=== PATIENT | female | born 1935 | race Caucasian/White ===

== ENCOUNTER 2018-10-10 21:50 | Emergency (ER) | payer MEDICARE, MEDICAID ==
[~2018-10-10] VITALS: Ht 167.6 cm; Wt 81.6 kg
[2018-10-10] MEDS ORDERED: METFORMIN HCL500 M4 ORAL (21:55)
--- NOTE | 2018-10-10 22:05 | Emergency Room Report ---
History of Present Illness General Chief Complaint: Abdominal Pain Source: Patient Present Illness HPI Patient presents with right lower quadrant pain that began yesterday. It's constant. She denies any fevers, nausea, vomiting, diarrhea. She's worried that this might be appendicitis. She denies any dysuria or hematuria. The stools have been normal. Pain rated 8/10, aching and constant. Denies chest pain. Patient is a [id number]-otqlnaukb diabetic. H/O HTN. No rashes, headache, dyspnea, joint pain, weakness. H/O depression, but not c/o this now. Allergies: Coded Allergies: No Known Allergies (Unverified , 10/10/18) Patient History Past Medical History: see triage record Social History: Denies: smoking Social History Narrative At Assisted Living Last Menstrual Period: UNK Reviewed Nursing Documentation: PMH: Agreed; PSxH: Agreed Nursing Documentation-PMH Past Medical History: No History, Except For Hx Cardiac Problems: No - glaucoma Hx Hypertension: Yes Hx Diabetes: Yes Hx Neurological Problems: Yes - depression Review of Systems All Other Systems: negative except mentioned in HPI Physical Exam Vital Signs Date Time Temp Pulse Resp B/P (MAP) Pulse Ox O2 Delivery O2 Flow Rate FiO2 10/10/18 21:51 98.2 79 16 183/82 97 Room Air Sp02 EP Interpretation: reviewed, normal General Appearance: well appearing, no apparent distress, GCS 15 Head: normocephalic Eyes: bilateral eye normal inspection, bilateral eye PERRL ENT: moist mucus membranes Neck: supple Respiratory: lungs clear, normal breath sounds Cardiovascular #1: regular rate, rhythm Cardiovascular #2: 2+ radial (R), 2+ femoral (R), 2+ femoral (L) Gastrointestinal: normal inspection, normal bowel sounds, no mass, non- distended, no guarding, no rebound, tenderness - mid abdomen Genitourinary: no CVA tenderness Musculoskeletal: back normal, gait/station normal, normal range of motion Neurologic: alert, motor strength/tone normal, sensory intact, oriented - X2 Psychiatric: mood/affect normal Skin: normal inspection, warm/dry Medical Decision Making Diagnostic Impression: Primary Impression: Abdominal pain Qualified Codes: R10.31 - Right lower quadrant pain Additional Impression: Aortic aneurysm Qualified Codes: I71.2 - Thoracic aortic aneurysm, without rupture ER Course Patient presents with right lower quadrant pain. Differential includes diverticulitis, appendicitis, urinary tract infection amongst others. She'll be evaluated with EKG, CT abdomen and pelvis with contrast, labs with urinalysis. The patient will be treated with IV hydration small dose of morphine and Zofran. EKG no injury. CT Abd/Pelvis - appendix normal. Thoracic aneurism 7.6 cm with mural thrombus. WBC 10.2 no left shift. CMP - elevated glucose and calcium. UA clear. [facility] did not get initial fax in attempt to transfer. Contact [facility] and discussed with Transfer Center. Recall 5:07. Recall 5:45 - Dr. Hartmann has not contacted Transfer Center. Call [facility]. Discussed with Dr. Mccall who is looking for bed for possible transfer. Pt BP better and resting and no complaints of pain. Re-call - discussed with [facility] 7:15 - had not heard from Dr. Mccall (re- discussed with Dr. Mccall). Discussed with Transfer Center, [facility], who state they had to hear from Dr. Mccall. (He contacted them during the call.) Will accept patient. Patient still with RLQ tenderness returned (but improved). Abd soft. Repeat morphine. Patient stable for transfer higher level of care. Laboratory Tests Test 10/10/18 22:25 10/10/18 23:05 White Blood Count 10.2 K/UL (4.8-10.8) Red Blood Count 4.87 M/UL (4.20-5.40) Hemoglobin 14.2 G/DL (12.0-16.0) Hematocrit 42.6 % (37.0-47.0) Mean Corpuscular Volume 87 FL (80-99) Mean Corpuscular Hemoglobin 29.3 PG (27.0-31.0) Mean Corpuscular Hemoglobin Concent 33.4 G/DL (32.0-36.0) Red Cell Distribution Width 12.9 % (11.6-14.8) Platelet Count 231 K/UL (150-450) Mean Platelet Volume 7.5 FL (6.5-10.1) Neutrophils (%) (Auto) 63.1 % (45.0-75.0) Lymphocytes (%) (Auto) 26.4 % (20.0-45.0) Monocytes (%) (Auto) 7.0 % (1.0-10.0) Eosinophils (%) (Auto) 2.5 % (0.0-3.0) Basophils (%) (Auto) 1.0 % (0.0-2.0) Prothrombin Time 10.7 SEC (9.30-11.50) Prothrombin Time INR 1.0 (0.9-1.1) PTT 30 SEC (23-33) Sodium Level 137 MMOL/L (136-145) Potassium Level 3.8 MMOL/L (3.5-5.1) Chloride Level 102 MMOL/L (98-107) Carbon Dioxide Level 26 MMOL/L (21-32) Anion Gap 9 mmol/L (5-15) Blood Urea Nitrogen 13 mg/dL (7-18) Creatinine 0.8 MG/DL (0.55-1.30) Estimate Glomerular Filtration Rate mL/min (>60) Glucose Level 212 MG/DL (74-106) H Calcium Level 10.5 MG/DL (8.5-10.1) H Total Bilirubin 0.2 MG/DL (0.2-1.0) Aspartate Amino Transferase (AST) 12 U/L (15-37) L Alanine Aminotransferase (ALT) 15 U/L (12-78) Alkaline Phosphatase 109 U/L (46-116) Total Protein 7.9 G/DL (6.4-8.2) Albumin 3.5 G/DL (3.4-5.0) Globulin 4.4 g/dL Albumin/Globulin Ratio 0.8 (1.0-2.7) L Lipase 141 U/L (73-393) Urine Color Pale yellow Urine Appearance Clear Urine pH 7 (4.5-8.0) Urine Specific [place] 1.015 (1.005-1.035) Urine Protein Negative (NEGATIVE) Urine Glucose (UA) Negative (NEGATIVE) Urine Ketones Negative (NEGATIVE) Urine Blood Negative (NEGATIVE) Urine Nitrite Negative (NEGATIVE) Urine Bilirubin Negative (NEGATIVE) Urine Urobilinogen 1 MG/DL (0.0-1.0) H Urine Leukocyte Esterase Negative (NEGATIVE) EKG Diagnostic Results Rate: normal Rhythm: NSR ST Segments: no acute changes Rhythm Strip Diag. Results EP Interpretation: yes Rhythm: NSR, no PVC's, no ectopy Chest X-Ray Diagnostic Results Chest X-Ray Diagnostic Results : Chest X-Ray Ordered: Yes # of Views/Limited/Complete: 1 View Indication: Other EP Interpretation: Yes Interpretation: no consolidation, no effusion, no pneumothorax, other - ectatic aorta Impression: Other Electronically Signed by: Jay Pat MD CT/MRI/US Diagnostic Results CT/MRI/US Diagnostic Results : Imaging Test Ordered: abd/pelvis Impression 7.6 cm aortic aneurism with mural thrombus Last Vital Signs Date Time Temp Pulse Resp B/P (MAP) Pulse Ox O2 Delivery O2 Flow Rate FiO2 10/11/18 10:06 97.8 66 18 158/79 94 Room Air Status: improved Disposition: XFER SHT-TRM HOSP Condition: Serious Jay Pat MD Oct 10, 2018 22:05
[2018-10-10] MEDS ORDERED: Morphine Sulfate 2mg/ml Inj IVP ONE (22:15)
[2018-10-10] MEDS ORDERED: Isovue-300 100ml vial INJ PRN (22:15)
[2018-10-10 22:37] VITALS: BP 117/69
[2018-10-10 22:40] LABS: EOSINOPHILS % (AUTO) 2.5 % (0.0-3.0); HEMATOCRIT 42.6 % (37.0-47.0); HEMOGLOBIN 14.2 G/DL (12.0-16.0); LYMPHOCYTES % (AUTO) 26.4 % (20.0-45.0); MEAN CORPUSCULAR VOLUME 87 FL (80-99); NEUTROPHILS % (AUTO) 63.1 % (45.0-75.0); PLATELET COUNT 231 K/UL (150-450); RED BLOOD COUNT 4.87 M/UL (4.20-5.40); RED CELL DISTRIBUTION WIDTH 12.9 % (11.6-14.8); WHITE BLOOD COUNT 10.2 K/UL (4.8-10.8)
[2018-10-10 22:49] LABS: ANION GAP 9 mmol/L (5-15); BLOOD UREA NITROGEN 13 mg/dL (7-18); CALCIUM 10.5 MG/DL (8.5-10.1); CARBON DIOXIDE 26 MMOL/L (21-32); CHLORIDE 102 MMOL/L (98-107); CREATININE 0.8 MG/DL (0.55-1.30); POTASSIUM 3.8 MMOL/L (3.5-5.1); SODIUM 137 MMOL/L (136-145)
[2018-10-10 22:54] LABS: ALANINE AMINOTRANSFERASE 15 U/L (12-78); ALBUMIN 3.5 G/DL (3.4-5.0); ALBUMIN/GLOBULIN RATIO 0.8 (1.0-2.7); ALKALINE PHOSPHATASE 109 U/L (46-116); ASPARTATE AMINO TRANSFERASE 12 U/L (15-37); BILIRUBIN,TOTAL 0.2 MG/DL (0.2-1.0)
[2018-10-10 23:39] LABS: APPEARANCE,URINE CLEAR; BILIRUBIN, URINE NEGATIVE (NEGATIVE); COLOR,URINE PALE YELLOW; GLUCOSE, URINE (UA) NEGATIVE (NEGATIVE); KETONES,URINE NEGATIVE (NEGATIVE); LEUKOCYTE ESTERASE ,URINE NEGATIVE (NEGATIVE); NITRITE,URINE NEGATIVE (NEGATIVE); PH,URINE 7 (4.5-8.0); PROTEIN,URINE NEGATIVE (NEGATIVE); UROBILINOGEN,URINE 1 MG/DL (0.0-1.0)
--- NOTE | 2018-10-11 01:34 | Diagnostic Imaging Report ---
EXAM: CT Abdomen and Pelvis With Intravenous Contrast CLINICAL HISTORY: ABD PAIN TECHNIQUE: Axial computed tomography images of the abdomen and pelvis with intravenous contrast. CTDI is 0.15, 19.75 mGy and DLP is 1054 mGy-cm. One or more of the following dose reduction techniques were used: automated exposure control, adjustment of the mA and/or kV according to patient size, use of iterative reconstruction technique. COMPARISON: No relevant prior studies available. FINDINGS: Lung bases: Left lower lobe atelectasis. ABDOMEN: Liver: Unremarkable. Gallbladder and bile ducts: Cholelithiasis. No biliary dilatation. Pancreas: Unremarkable. Spleen: Unremarkable. Adrenals: Unremarkable. Kidneys and ureters: Unremarkable. No solid mass. No hydronephrosis. Stomach and bowel: Unremarkable. Bowel is nondilated. PELVIS: Appendix: No findings to suggest acute appendicitis. Bladder: Unremarkable. Reproductive: Fibroid uterus. ABDOMEN and PELVIS: Intraperitoneal space: Unremarkable. No free air. Bones/joints: No acute osseous abnormality. Degenerative changes of the spine. Soft tissues: Unremarkable. Vasculature: Incompletely imaged descending thoracic aortic aneurysm measuring up to 7.6 cm with mural thrombus. Extensive atherosclerosis of the abdominal aorta. Ectasia of the proximal abdominal aorta. No abdominal aortic dissection. Lymph nodes: Unremarkable. IMPRESSION: Incompletely imaged descending thoracic aortic aneurysm measuring up to 7.6 cm with mural thrombus. CTA of the chest may be considered for further characterization.
[2018-10-11 03:00] VITALS: BP 142/78
[2018-10-11 06:58] VITALS: BP 150/69
[2018-10-11] MEDS ORDERED: Morphine Sulfate 2mg/ml Inj IVP ONE ×2 (08:30→09:15)
--- NOTE | 2018-10-11 09:01 | Diagnostic Imaging Report ---
PORTABLE AP UPRIGHT CXR: HISTORY: 83-year-old female with aortic aneurysm. COMPARISON: Abdomen and pelvis CT with intravenous contrast earlier same date. FINDINGS: There is a large, smooth, curvilinear "mass" within the left chest, extending from the level of the aortic arch through medial left hemidiaphragm, centered at the level of the pulmonary hilum, consistent with descending thoracic aortic aneurysm, which was partially imaged on the prior abdominal CT. There is no obvious significant aneurysmal dilation of the ascending thoracic aorta, allowing for technique. No obvious pleural effusion. The lungs are grossly clear. Heart size is normal. IMPRESSION: Aneurysm of at least the descending thoracic aorta, as identified on the abdominal CT same date. Chest CTA is suggested for complete evaluation.
[2018-10-11 09:03] VITALS: BP 127/82
[2018-10-11 10:06] VITALS: BP 158/79
--- NOTE | 2018-10-11 12:22 | Cardiology Report ---
APPROVED REPORT EKG Measurement Heart [id number] Normal sinus rhythm Normal ECG
== END 2018-10-11 10:19 | disposition short-term general hospital (02) ==
LOC: EDBD 21:50 → EMR 22:12
DX: R10.31 Right lower quadrant pain (principal); I71.2 Thoracic aortic aneurysm, without rupture; E11.9 Type 2 diabetes mellitus without complications; I10 Essential (primary) hypertension
CPT/HCPCS: 36415; 71045; 74177; 80053; 81003; 83690; 85025; 85610; 85730; 86850; 86900; 86901; 93005; 96361; 96374; 96375; 99285; J2270; J2405; Q9967

== ENCOUNTER 2018-11-19 10:22 | Emergency (ER) | payer MEDICARE, MEDICAID ==
[~2018-11-19] VITALS: Ht 172.7 cm; Wt 81.6 kg
[~2018-11-19 10:22] MED LIST: METFORMIN HCL500 M4 ORAL
[2018-11-19] MEDS ORDERED: Isovue-300 100ml vial INJ PRN (10:45)
--- NOTE | 2018-11-19 10:56 | NUR ---
ED Nurse Note:pt. was BIBA from assist living with c/o right upper abd pain, VSS, pt. is A/Ox3 ambulatory with assistance, blood and urine sent to labs, IV fluid given
[2018-11-19 11:05] VITALS: BP 147/82
[2018-11-19 11:07] LABS: BASOPHILS % (AUTO) 0.9 % (0.0-2.0); EOSINOPHILS % (AUTO) 1.6 % (0.0-3.0); HEMATOCRIT 44.7 % (37.0-47.0); HEMOGLOBIN 14.7 G/DL (12.0-16.0); LYMPHOCYTES % (AUTO) 20.9 % (20.0-45.0); MEAN CORPUSCULAR VOLUME 86 FL (80-99); MONOCYTES % (AUTO) 6.2 % (1.0-10.0); NEUTROPHILS % (AUTO) 70.5 % (45.0-75.0); PLATELET COUNT 246 K/UL (150-450); RED BLOOD COUNT 5.19 M/UL (4.20-5.40); RED CELL DISTRIBUTION WIDTH 12.9 % (11.6-14.8)
[2018-11-19 11:10] LABS: ANION GAP 7 mmol/L (5-15); BLOOD UREA NITROGEN 12 mg/dL (7-18); CALCIUM 10.6 MG/DL (8.5-10.1); CARBON DIOXIDE 27 MMOL/L (21-32); CHLORIDE 104 MMOL/L (98-107); CREATININE 0.8 MG/DL (0.55-1.30); POTASSIUM 4.3 MMOL/L (3.5-5.1); SODIUM 138 MMOL/L (136-145)
[2018-11-19 11:16] LABS: ALANINE AMINOTRANSFERASE 15 U/L (12-78); ALBUMIN 3.3 G/DL (3.4-5.0); ALBUMIN/GLOBULIN RATIO 0.9 (1.0-2.7); ALKALINE PHOSPHATASE 91 U/L (46-116); ASPARTATE AMINO TRANSFERASE 19 U/L (15-37); BILIRUBIN,TOTAL 0.5 MG/DL (0.2-1.0)
[2018-11-19 11:39] LABS: APPEARANCE,URINE CLEAR; BILIRUBIN, URINE NEGATIVE (NEGATIVE); COLOR,URINE PALE YELLOW; GLUCOSE, URINE (UA) NEGATIVE (NEGATIVE); KETONES,URINE NEGATIVE (NEGATIVE); LEUKOCYTE ESTERASE ,URINE NEGATIVE (NEGATIVE); NITRITE,URINE NEGATIVE (NEGATIVE); PH,URINE 7 (4.5-8.0); PROTEIN,URINE NEGATIVE (NEGATIVE); UROBILINOGEN,URINE NORMAL MG/DL (0.0-1.0)
[2018-11-19 12:29] VITALS: BP 124/79
--- NOTE | 2018-11-19 12:43 | Diagnostic Imaging Report ---
INDICATION: Pain TECHNIQUE: Multiple, contiguous axial cuts of the abdomen and pelvis are obtained from the lung bases to the ischial tuberosities. Sagittal and coronal reformatted images are available. One or more of the following dose reduction techniques were used: automated exposure control, adjustment of the mA and/or kV according to patient size, use of iterative reconstruction technique. COMPARISON: CT abdomen and pelvis 10/11/18 FINDINGS: The lung bases are clear. Large descending thoracic aortic aneurysm measuring 8 x 7.6 cm, grossly unchanged in size from prior exam. The abdominal aorta at the level of the diaphragmatic hiatus measures 4.1 cm. The liver and spleen are normal in size and free of mass lesions. Gallstones. The bile ducts and pancreas are normal. The adrenal gland are unremarkable. The kidneys are normal in size and contour. No stones, lesions or hydronephrosis. Fluid seen in endometrial canal. Small hiatal hernia. No bowel obstruction. The bowel is otherwise normal. Atherosclerotic vascular disease. Aorta is normal caliber. No adenopathy or extraluminal air. Mild disc height loss throughout. Moderate-sized anterior osteophytes. The osseous structures are otherwise normal. IMPRESSION: 1. Continued demonstration of large descending thoracic aortic aneurysm measuring 8 x 7.6 cm. The abdominal aorta the level of the diaphragmatic hiatus measures 4.1 cm. 2. Gallstones without gallbladder wall thickening or pericholecystic fluid. 3. Small hiatal hernia. 4. Fluid seen in the endometrium canal, it a postmenopausal females further evaluation can be obtained with pelvic ultrasound. CTDI: 17.94 mGy DLP: 881.51 mGycm
--- NOTE | 2018-11-19 13:24 | Emergency Room Report ---
History of Present Illness General Chief Complaint: Abdominal Pain Source: Patient, Medical Record, EMS Present Illness HPI Patient presents with complaints of right-sided mid abdominal pain Increased nausea denies any vomiting Denies any diarrhea Pain is sharp intermittent Denies any fevers or chills Patient was here [place] at that time has shown an aneurysm and patient was transferred to [facility] Patient reports that nothing further was done and patient was referred to outpatient follow-up Currently and describes the pain is 3 out of 10 sharp and cramping at times Denies any change with position or exertion Allergies: Coded Allergies: No Known Allergies (Unverified , 10/10/18) Patient History Past Medical History: see triage record Pertinent Family History: none Reviewed Nursing Documentation: PMH: Agreed; PSxH: Agreed Nursing Documentation-PMH Past Medical History: No History, Except For Hx Cardiac Problems: No - high cholesterol Hx Hypertension: Yes Hx Diabetes: Yes History Of Psychiatric Problem: Yes - depression Hx Neurological Problems: Yes - depression Review of Systems All Other Systems: negative except mentioned in HPI Physical Exam Vital Signs Date Time Temp Pulse Resp B/P (MAP) Pulse Ox O2 Delivery O2 Flow Rate FiO2 11/19/18 10:16 98.8 64 16 147/82 96 Sp02 EP Interpretation: reviewed, normal General Appearance: well appearing, no apparent distress Head: normocephalic, atraumatic Eyes: bilateral eye PERRL, bilateral eye EOMI ENT: hearing grossly normal, normal pharynx, TMs + canals normal, uvula midline Neck: full range of motion, supple, no meningismus, no bony tend Respiratory: lungs clear, normal breath sounds, no rhonchi, no respiratory distress, no retraction, no accessory muscle use Cardiovascular #1: normal peripheral pulses, regular rate, rhythm, no edema, no gallop, no JVD, no murmur Gastrointestinal: normal bowel sounds, non tender - On palpation however subjectively points to the right mid abdominal region, soft, no mass, no organomegaly, non-distended, no guarding, no hernia, no pulsatile mass, no rebound Genitourinary: no CVA tenderness Musculoskeletal: normal inspection Neurologic: oriented x3, responsive, chemistry technologist III-XII nml as tested, motor strength/ tone normal, sensory intact Psychiatric: mood/affect normal Skin: normal color, no rash, warm/dry, palpation normal Lymphatic: normal inspection, no adenopathy Medical Decision Making Diagnostic Impression: Primary Impression: Abdominal pain ER Course With the history exam and presentation, multiple differentials considered, including but not limited to appendicitis, gastritis, cholecystitis, diverticulitis Given the patient's previous imaging and findings worsening vascular pathology also entertained CT imaging was obtained the aneurysm is similar size and has not had much change they do however see gallstones Potentially consistent with patient's biliary colic Lipase level was also mildly elevated On repeat evaluation patient has requested food and is eating Reports the discomfort is significantly improved There was initial consideration for inpatient care At this time Dr. hayes who was contacted for transfer, is reported to be the patient's propellant charge zone assembler Patient reports that she has an appointment on Wednesday with him I discussed this with the physician and he does have clinic on Wednesday and also is a propellant charge zone assembler and appears to be the same physician Given the patient's full resolution given the patient's reexamination We will have initial conservative outpatient trial Labs Test 11/19/18 10:40 11/19/18 10:50 White Blood Count 10.0 K/UL (4.8-10.8) Red Blood Count 5.19 M/UL (4.20-5.40) Hemoglobin 14.7 G/DL (12.0-16.0) Hematocrit 44.7 % (37.0-47.0) Mean Corpuscular Volume 86 FL (80-99) Mean Corpuscular Hemoglobin 28.3 PG (27.0-31.0) Mean Corpuscular Hemoglobin Concent 32.8 G/DL (32.0-36.0) Red Cell Distribution Width 12.9 % (11.6-14.8) Platelet Count 246 K/UL (150-450) Mean Platelet Volume 7.9 FL (6.5-10.1) Neutrophils (%) (Auto) 70.5 % (45.0-75.0) Lymphocytes (%) (Auto) 20.9 % (20.0-45.0) Monocytes (%) (Auto) 6.2 % (1.0-10.0) Eosinophils (%) (Auto) 1.6 % (0.0-3.0) Basophils (%) (Auto) 0.9 % (0.0-2.0) Sodium Level 138 MMOL/L (136-145) Potassium Level 4.3 MMOL/L (3.5-5.1) Chloride Level 104 MMOL/L (98-107) Carbon Dioxide Level 27 MMOL/L (21-32) Anion Gap 7 mmol/L (5-15) Blood Urea Nitrogen 12 mg/dL (7-18) Creatinine 0.8 MG/DL (0.55-1.30) Estimat Glomerular Filtration Rate mL/min (>60) Glucose Level 119 MG/DL (74-106) Calcium Level 10.6 MG/DL (8.5-10.1) Total Bilirubin 0.5 MG/DL (0.2-1.0) Aspartate Amino Transf (AST/SGOT) 19 U/L (15-37) Alanine Aminotransferase (ALT/SGPT) 15 U/L (12-78) Alkaline Phosphatase 91 U/L (46-116) Total Protein 7.0 G/DL (6.4-8.2) Albumin 3.3 G/DL (3.4-5.0) Globulin 3.7 g/dL Albumin/Globulin Ratio 0.9 (1.0-2.7) Lipase 452 U/L (73-393) Urine Color Pale yellow Urine Appearance Clear Urine pH 7 (4.5-8.0) Urine Specific [place] 1.015 (1.005-1.035) Urine Protein Negative (NEGATIVE) Urine Glucose (UA) Negative (NEGATIVE) Urine Ketones Negative (NEGATIVE) Urine Blood Negative (NEGATIVE) Urine Nitrite Negative (NEGATIVE) Urine Bilirubin Negative (NEGATIVE) Urine Urobilinogen Normal MG/DL (0.0-1.0) Urine Leukocyte Esterase Negative (NEGATIVE) CT/MRI/US Diagnostic Results CT/MRI/US Diagnostic Results : Impression CT abdomen pelvisIMPRESSION: 1. Continued demonstration of large descending thoracic aortic aneurysm measuring 8 x 7.6 cm. The abdominal aorta the level of the diaphragmatic hiatus measures 4.1 cm. 2. Gallstones without gallbladder wall thickening or pericholecystic fluid. 3. Small hiatal hernia. 4. Fluid seen in the endometrium canal, it a postmenopausal females further evaluation can be obtained with pelvic ultrasound. Last Vital Signs Date Time Temp Pulse Resp B/P (MAP) Pulse Ox O2 Delivery O2 Flow Rate FiO2 11/19/18 12:29 98.8 64 16 124/79 97 Status: improved Disposition: HOME, SELF-CARE Condition: Improved Referrals: Jay Loza DPM (PCP) Additional Instructions: Patient is provided with the discharge instructions notified to follow up with primary doctor in the next 2-3 days otherwise return to the er with any worsening symptoms. Please note that this report is being documented using [employer] technology. This can lead to erroneous entry secondary to incorrect interpretation by the dictating instrument. Samantha Jaimes DO Nov 19, 2018 13:24
[2018-11-19 15:03] VITALS: BP 165/98
[2018-11-19 15:30] VITALS: BP 155/91
--- NOTE | 2018-11-19 15:34 | NUR ---
ED Nurse Note:pt. was cleared for d/c by ER MD, she received d/c instructions, she was picked up by ambulance for transfer back to [facility], report given to paramedics
== END 2018-11-19 15:36 | disposition home or self-care (01) ==
LOC: EDBD 10:22 → EMR 10:41 → EDBEDREQ 13:22 → CANBEDREQ 14:35 → EMR 15:36
DX: R10.9 Unspecified abdominal pain (principal); K44.9 Diaphragmatic hernia without obstruction or gangrene; K80.20 Calculus of gallbladder without cholecystitis without obstruction; I71.2 Thoracic aortic aneurysm, without rupture; I10 Essential (primary) hypertension; E11.9 Type 2 diabetes mellitus without complications; F32.9 Major depressive disorder, single episode, unspecified; E78.00 Pure hypercholesterolemia, unspecified
CPT/HCPCS: 36415; 74177; 80053; 81003; 83690; 85025; 99284; Q9967

== ENCOUNTER 2019-10-26 16:19 | Emergency (ER) | payer MEDICAID, MEDICARE ==
[~2019-10-26] VITALS: Ht 167.6 cm; Wt 77.1 kg
--- NOTE | 2019-10-26 16:27 | NUR ---
ED Nurse Note: patient brought into ED from [facility] by ambulance Med Reach Unit [facility] c/o coughing, sneezing, and weakness for 2 days. patient reports hx of htn, depression, dm II, and HLD, [place]. patient is alert awake on a hospital gown, on a nurse monitoring, kleenex given to the patient.
[2019-10-26 16:31] VITALS: BP 186/87
[2019-10-26] MEDS: Albuterol/Ipratropium 3ml neb HHN SCH ×2 (16:59→17:30)
[2019-10-26 17:19] LABS: BASOPHILS % (AUTO) 0.9 % (0.0-2.0); EOSINOPHILS % (AUTO) 2.4 % (0.0-3.0); HEMOGLOBIN 14.3 G/DL (12.0-16.0); LYMPHOCYTES % (AUTO) 18.2 % (20.0-45.0); MEAN CORPUSCULAR VOLUME 84 FL (80-99); MONOCYTES % (AUTO) 6.5 % (1.0-10.0); PLATELET COUNT 250 K/UL (150-450); RED BLOOD COUNT 5.11 M/UL (4.20-5.40); RED CELL DISTRIBUTION WIDTH 11.6 % (11.6-14.8); WHITE BLOOD COUNT 12.4 K/UL (4.8-10.8)
[2019-10-26 17:29] LABS: ANION GAP 12 mmol/L (5-15); BLOOD UREA NITROGEN 17 mg/dL (7-18); CALCIUM 10.3 MG/DL (8.5-10.1); CARBON DIOXIDE 25 MMOL/L (21-32); CHLORIDE 102 MMOL/L (98-107); CREATININE 0.8 MG/DL (0.55-1.30); POTASSIUM 4.2 MMOL/L (3.5-5.1); SODIUM 139 MMOL/L (136-145)
--- NOTE | 2019-10-26 17:39 | Emergency Room Report ---
History of Present Illness General Chief Complaint: Upper Respiratory Illness Source: Patient Present Illness HPI Patient states that for the past 2 days she has had cough with sputum production. She states she has had sneezing. She states she is been coughing all night long and has been unable to sleep. She has produced thick sputum. She denies fever or chills. She denies nausea or vomiting. She states that she did have a headache previously but this has since resolved. She denies chest pain. She denies abdominal pain. She has no other complaints. Allergies: Coded Allergies: No Known Allergies (Unverified , 10/10/18) Patient History Past Medical History: see triage record, DM, HTN, psych hx Social History: Denies: smoking, alcohol use, drug use Reviewed Nursing Documentation: PMH: Agreed; PSxH: Agreed Nursing Documentation-PMH Hx Hypertension: Yes Hx Diabetes: Yes Hx Neurological Problems: Yes - depression Review of Systems All Other Systems: negative except mentioned in HPI Physical Exam Vital Signs Date Time Temp Pulse Resp B/P (MAP) Pulse Ox O2 Delivery O2 Flow Rate FiO2 10/26/19 16:20 99.1 92 16 173/104 (127) 92 10/26/19 16:30 Room Air 10/26/19 17:12 21 Sp02 EP Interpretation: reviewed, normal General Appearance: no apparent distress, alert, GCS 15, non-toxic Head: normocephalic, atraumatic Eyes: bilateral eye normal inspection, bilateral eye PERRL ENT: hearing grossly normal, normal pharynx, no angioedema, normal voice Neck: full range of motion, supple/symm/no masses Respiratory: chest non-tender, no respiratory distress, no retraction, no accessory muscle use, rhonchi, speaking full sentences Cardiovascular #1: regular rate, rhythm, no edema Gastrointestinal: normal bowel sounds, non tender, soft, non-distended, no guarding, no rebound Rectal: deferred Musculoskeletal: back normal, normal range of motion, gait/station normal, non- tender Neurologic: alert, motor strength/tone normal, oriented x3, sensory intact, responsive, speech normal Psychiatric: judgement/insight normal, memory normal, mood/affect normal, no suicidal/homicidal ideation Skin: no rash, normal color Medical Decision Making Diagnostic Impression: Primary Impression: Pneumonia ER Course This patient has pneumonia and has wheezing and rhonchi on exam. The patient has recurrent coughing. Given the patient's age, I felt that this patient should be admitted for IV antibiotics and pulmonary hygiene. She was given broad-spectrum antibiotics and IV fluids and breathing treatments here in the emergency department and was admitted for further monitoring, evaluation and treatment. The patient's insurance company requested her transfer to [facility]. The patient is stable for transfer. She was turned over to the food service supervisor/hospitalist at [facility]. Laboratory Tests Test 10/26/19 16:55 10/26/19 16:58 10/26/19 17:55 White Blood Count 12.4 K/UL (4.8-10.8) H Red Blood Count 5.11 M/UL (4.20-5.40) Hemoglobin 14.3 G/DL (12.0-16.0) Hematocrit 43.0 % (37.0-47.0) Mean Corpuscular Volume 84 FL (80-99) Mean Corpuscular Hemoglobin 27.9 PG (27.0-31.0) Mean Corpuscular Hemoglobin Concent 33.2 G/DL (32.0-36.0) Red Cell Distribution Width 11.6 % (11.6-14.8) Platelet Count 250 K/UL (150-450) Mean Platelet Volume 7.0 FL (6.5-10.1) Neutrophils (%) (Auto) 72.0 % (45.0-75.0) Lymphocytes (%) (Auto) 18.2 % (20.0-45.0) L Monocytes (%) (Auto) 6.5 % (1.0-10.0) Eosinophils (%) (Auto) 2.4 % (0.0-3.0) Basophils (%) (Auto) 0.9 % (0.0-2.0) Prothrombin Time 10.4 SEC (9.30-11.50) Prothrombin Time INR 1.0 (0.9-1.1) PTT 29 SEC (23-33) Sodium Level 139 MMOL/L (136-145) Potassium Level 4.2 MMOL/L (3.5-5.1) Chloride Level 102 MMOL/L (98-107) Carbon Dioxide Level 25 MMOL/L (21-32) Anion Gap 12 mmol/L (5-15) Blood Urea Nitrogen 17 mg/dL (7-18) Creatinine 0.8 MG/DL (0.55-1.30) Estimate Glomerular Filtration Rate mL/min (>60) Glucose Level 193 MG/DL (74-106) H Calcium Level 10.3 MG/DL (8.5-10.1) H Total Bilirubin 0.3 MG/DL (0.2-1.0) Aspartate Amino Transferase (AST) 20 U/L (15-37) Alanine Aminotransferase (ALT) 22 U/L (12-78) Alkaline Phosphatase 111 U/L (46-116) Troponin I 0.000 ng/mL (0.000-0.056) Pro-B-Type Natriuretic Peptide 450 pg/mL (0-125) H Total Protein 7.7 G/DL (6.4-8.2) Albumin 3.5 G/DL (3.4-5.0) Globulin 4.2 g/dL Albumin/Globulin Ratio 0.8 (1.0-2.7) L Arterial Blood pH 7.416 (7.350-7.450) Arterial Blood Partial Pressure CO2 40.0 mmHg (35.0-45.0) Arterial Blood Partial Pressure O2 73.4 mmHg (75.0-100.0) L Arterial Blood HCO3 25.1 mmol/L (22.0-26.0) Arterial Blood Oxygen Saturation 95.4 % (95-100) Arterial Blood Base Excess 0.6 (-2-2) Cal Test Positive Lactic Acid Level Pending EKG Diagnostic Results Rate: normal Rhythm: NSR ST Segments: no acute changes Other Impression NSST findings. Rhythm Strip Diag. Results EP Interpretation: yes Rate: 80's Rhythm: NSR, no PVC's, no ectopy Chest X-Ray Diagnostic Results Chest X-Ray Diagnostic Results : Chest X-Ray Ordered: Yes # of Views/Limited/Complete: 1 View Indication: Shortness of Breath EP Interpretation: Yes Interpretation: other - RLL opacity c/w PNA Impression: Other - See above. Electronically Signed by: Agustina Cedeno DO Last Vital Signs Date Time Temp Pulse Resp B/P (MAP) Pulse Ox O2 Delivery O2 Flow Rate FiO2 10/26/19 17:12 88 21 96 Room Air 21 10/26/19 16:31 99.1 186/87 Disposition: XFER T-TRM HOSP Condition: Stable Agustina Cedeno DO Oct 26, 2019 17:39
[2019-10-26 17:40] LABS: ALANINE AMINOTRANSFERASE 22 U/L (12-78); ALBUMIN 3.5 G/DL (3.4-5.0); ALBUMIN/GLOBULIN RATIO 0.8 (1.0-2.7); ALKALINE PHOSPHATASE 111 U/L (46-116); ASPARTATE AMINO TRANSFERASE 20 U/L (15-37); BILIRUBIN,TOTAL 0.3 MG/DL (0.2-1.0)
[2019-10-26] MEDS ORDERED: cefTRIAXone 1 GM in NS 55 ML IVPB ONE (17:45)
[2019-10-26] MEDS ORDERED: Albuterol ud Inhalation HHN ONE (17:45)
--- NOTE | 2019-10-26 18:59 | NUR ---
ED Nurse Note: unable to collect urine sample, as patient reports she does not need to use restroom at this time.
--- NOTE | 2019-10-26 19:09 | NUR ---
HAND-OFF: Report given to Basilia KHAN.
--- NOTE | 2019-10-26 19:31 | NUR ---
ED Nurse Note: Patient resting comfortably, requested food; sandwich provided after blood sugar verification.
--- NOTE | 2019-10-26 19:45 | NUR ---
ED Nurse Note: Report called in to nursing supervisor maintenance and custodians, Dayami KHAN, at [facility].
[2019-10-26 20:00] VITALS: BP 158/78
[2019-10-26 22:10] VITALS: BP 190/86
--- NOTE | 2019-10-26 22:10 | NUR ---
ER DISCHARGE NOTE: Patient is cleared to be transferred per [facility] via [facility] ambulance via gurney, pt is aox4, on room air, with stable vital signs. Gave report to transfer EMS and given packet. pt was able to verbalize understanding. EMS took all belongings.
--- NOTE | 2019-10-27 09:32 | Diagnostic Imaging Report ---
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 The lungs and pleural spaces are clear except for some left peripheral midlung atelectasis or scarring. The heart size is normal Impression: Interim thoracic endograft placement No acute process
== END 2019-10-26 22:10 | disposition short-term general hospital (02) ==
LOC: EDBD 16:19 → EMR 17:00
DX: J18.9 Pneumonia, unspecified organism (principal); I10 Essential (primary) hypertension; E11.9 Type 2 diabetes mellitus without complications
CPT/HCPCS: 36415; 36600; 71045; 80053; 82803; 82962; 83605; 83880; 84484; 85025; 85610; 85730; 86850; 86900; 86901; 87040; 93005; 96361; 96365; 96375; 99284; J0360; J0696; J7030; 80307; 81003; J7620